=== PATIENT | male | born 1995 | race Two or more races ===

== ENCOUNTER 2024-07-10 15:39 | Emergency (ER) | payer OTHER ==
[~2024-07-10] VITALS: Ht 172.7 cm; Wt 66.2 kg
[~2024-07-10 15:39] MED LIST: CLEOCIN HCL300 MG PO
== END 2024-07-10 17:36 | disposition home or self-care (01) ==
LOC: ER 15:46
DX: L73.9 Follicular disorder, unspecified (principal); R21 Rash and other nonspecific skin eruption

== ENCOUNTER 2024-10-11 10:34 | Emergency (ER) | payer OTHER ==
[~2024-10-11] VITALS: Ht 172.7 cm; Wt 65.8 kg
[2024-10-11] MEDS ORDERED: CIPROFLOXACIN IN 5 % DEXTROSE 400 MG/200 ML PIGGYBAG IV STA (11:33)
[2024-10-11] MEDS ORDERED: KETOROLAC TROMETHAMINE 15 MG VIAL IU STA (11:33)
[2024-10-11 12:19] LABS: BASO % 0.5 % (0.1-1.2); EOS # 0.19 (0.04-0.54); EOS % 2.1 % (0.7-7.0); LYMPH # 2.42 (1.18-3.74); LYMPH % 26.4 % (19.3-53.1); MEAN PLATELET VOLUME 12.40 fl (9.4-12.4); MONO # 0.72 (0.24-0.82); MONO % 7.9 % (4.7-12.5); NEUT # 5.75 (1.56-6.13); NEUT % 62.9 % (34.0-71.1); RED CELL DISTRIBUTION WIDTH 11.8 % (11.6-14.4)
[2024-10-11 12:49] LABS: ALT/SGPT 19.0 U/L (12-78); AST/SGOT 14.0 U/L (15-37); BILIRUBIN TOTAL 0.6 mg/dL (0.3-1.2); BUN CREA RATIO 14.0 (7.0-25.0); CREATININE SERUM 1.05 mg/dL (0.70-1.30); GFR 84.1; GLOBULINA 4.0 G/DL (2.4-3.5); GLUCOSE FASTING 96.0 mg/dL (65-100); OSMOLALITY SERUM 282.0 MOSM/KG (275-295)
== END 2024-10-11 14:50 | disposition home or self-care (01) ==
LOC: ER 10:34
PROVIDERS: General Practice
DX: H60.391 Other infective otitis externa, right ear (principal); H66.91 Otitis media, unspecified, right ear
CPT/HCPCS: 36415; 70487; Q9965